=== PATIENT | female | born 1970 | race Two or more races ===

== ENCOUNTER 2019-04-08 10:32 | Emergency (ER) | payer OTHER ==
[~2019-04-08] VITALS: Ht 157.5 cm; Wt 79.4 kg
[2019-04-08] MEDS ORDERED: IBUPROFEN600 MG ORAL (10:48)
--- NOTE | 2019-04-08 11:01 | NUR ---
Note [email or web address] in EDM - 04/08/19 at 1105 by LUPILLO ED Nurse Note: PT WALKED IN TO ER TODAY FROM HOME. AOX4. PT C/O HEADACHE, 6 X THIS AM AFTER A WHEELCHAIR FOOTREST FELL FROM A CABINET ON TO PT'S HEAD. PT DENIES LOC. PT DENIES DIZZINESS, NAUSEA OR VOMITING. GAIT STEADY IN ER. PT DENIES BLOOD THINNER USE.
--- NOTE | 2019-04-08 11:01 | NUR ---
ED Nurse Note: PT WALKED IN TO ER TODAY FROM HOME. AOX4. PT C/O HEADACHE, 02/17 X THIS AM AFTER A WHEELCHAIR FOOTREST FELL FROM A CABINET ON TO PT'S HEAD. PT DENIES LOC. PT DENIES DIZZINESS, NAUSEA OR VOMITING. GAIT STEADY IN ER. PT DENIES BLOOD THINNER USE. NO OBVIOUS INJURY NOTED. NO SWELLING OR REDNESS NOTED.
[2019-04-08 11:02] VITALS: BP 124/80
[2019-04-08] MEDS ORDERED: Acetaminophen 500mg (ES) tab ORAL ONE (11:15)
--- NOTE | 2019-04-08 11:21 | NUR ---
ED Nurse Note: PT TO CT.
--- NOTE | 2019-04-08 11:33 | NUR ---
ED Nurse Note: PT BACK FROM CT.
--- NOTE | 2019-04-08 12:19 | Diagnostic Imaging Report ---
Indication: Headache Technique: Contiguous 5 mm thick transaxial imaging of the head obtained in a Siemens Sensation [address] scanner. Soft tissue and bone windows generated. Automatic Exposure Control was utilized. Total Dose length Product (DLP): 1397.[address] Dose Index Volume (CTDIvol): 70.38 mGy Comparison: none Findings: The size and configuration of the cortical sulci, basal cisterns, and ventricles are within normal limits for age. There is no mass effect, midline shift, or edema identified. There is no evidence of acute hemorrhage or abnormal intra-axial or extra-axial fluid collections. The bones and soft tissues are unremarkable. Impression: No mass effect, edema or acute bleed. The CT scanner at [facility] is accredited by the [employer] and the scans are performed using dose optimization techniques as appropriate to a performed exam including Automatic Exposure control.
--- NOTE | 2019-04-08 12:26 | Emergency Room Report ---
History of Present Illness General Chief Complaint: Head Injury Source: Patient Present Illness HPI Patient is a 49-year-old female presented after head injury. Patient reportedly had a wheelchair foot rest drop onto her head from cabinet. She denies loss of consciousness. Injury occurred yesterday. She reported having some initial bleeding which had resolved. She denies any loss of consciousness. She had been having some changes in her vision initially with some flashing lights. She reports having taken ibuprofen for pain. She denies other locations of injury. She had not been vomiting. Allergies: Coded Allergies: No Known Allergies (Unverified , 04/08/19) Patient History Past Medical History: see triage record Last Menstrual Period: menopause Reviewed Nursing Documentation: PMH: Agreed; PSxH: Agreed Nursing Documentation-PMH Past Medical History: No Stated History Review of Systems All Other Systems: negative except mentioned in HPI Physical Exam Vital Signs Date Time Temp Pulse Resp B/P (MAP) Pulse Ox O2 Delivery O2 Flow Rate FiO2 04/08/19 10:45 98.1 66 16 126/82 (97) 95 Room Air General Appearance: well appearing, no apparent distress, alert, GCS 15, non- toxic Head: normocephalic, other - scalp abrasion ENT: normal ENT inspection, hearing grossly normal, normal pharynx, normal voice Neck: full range of motion, supple Respiratory: chest non-tender, lungs clear, no respiratory distress, speaking full sentences Cardiovascular #1: normal inspection Gastrointestinal: normal inspection, normal bowel sounds, non tender, soft Musculoskeletal: no calf tenderness Neurologic: normal gait Psychiatric: mood/affect normal Skin: no rash Medical Decision Making Diagnostic Impression: Primary Impression: Acute head injury Additional Impression: Scalp abrasion ER Course Patient presented after traumatic head injury. Differential diagnosis include was not limited to contusion, intra-cranial hemorrhage, skull fracture among others. CT imaging of the head read by radiology showed no evidence of acute intracranial pathology and no evident fracture. Patient appears to be stable for outpatient management. She was noted to have up-to-date tetanus vaccine. Patient was given pain medications. She was advised to remain on light duty until cleared by her physician. Patient was to remain off work for 2 days. she is to return if worse. Last Vital Signs Date Time Temp Pulse Resp B/P (MAP) Pulse Ox O2 Delivery O2 Flow Rate FiO2 04/08/19 11:02 98.2 66 18 124/80 98 Room Air Status: improved Disposition: HOME, SELF-CARE Condition: Stable Scripts Acetaminophen* (ACETAMINOPHEN EXTRA STRENGTH*) 500 Mg Tablet 500 MG ORAL Q8H PRN for Fever/Headache/Mild Pain, #30 TAB Prov: Hermes Edward MD 04/08/19 Referrals: NON PHYSICIAN (PCP) Hermes Edward MD Apr 08, 2019 12:26
[2019-04-08] MEDS ORDERED: ACETAMINOPHEN500 M3 ORAL (12:37)
--- NOTE | 2019-04-08 12:43 | NUR ---
ED Nurse Note: PT SITTING PEACEFULLY IN BED IN NAD. AOX4. PRESCRIPTION AND DISCHARGE PAPERWORK EXPLAINED TO PT. PT VERBALIZES UNDERSTANDING AND ALL QUESTIONS ANSWERED. PRESCRIPTION AND DISCHARGE PAPERWORK GIVEN TO PT AND ID WRISTBAND REMOVED. PT WALKED OUT OF ER WITH STEADY GAIT AND ALL BELONGINGS.
[2019-04-08 12:44] VITALS: BP 122/76
== END 2019-04-08 12:43 | disposition home or self-care (01) ==
LOC: EMR 11:40
DX: S09.90XA Unspecified injury of head, initial encounter (principal); S00.01XA Abrasion of scalp, initial encounter; W20.8XXA Other cause of strike by thrown, projected or falling object, initial encounter; Y92.9 Unspecified place or not applicable
CPT/HCPCS: 70450; 99284